=== PATIENT | male | born 1940 | race Caucasian/White ===

== ENCOUNTER 2019-08-01 18:43 | Emergency (ER) | payer MEDICARE ==
--- NOTE | 2019-08-01 19:10 | EDM.PDOC ---
ED HPI GENERAL MEDICAL PROBLEM - General Chief Complaint: Lower Extremity Injury/Pain Stated Complaint: LEFT LEG INJURY/FALL Time Seen by Provider: 08/01/19 18:46 Source of Information: Reports: Patient History Limitations: Reports: No Limitations - History of Present Illness INITIAL COMMENTS - FREE TEXT/NARRATIVE: Booker is a 78 year old male, presents to the ED today with hematoma and pain to left otero after he slipped and fell at [facility] around 1700 this evening. Patient has had nothing for pain, not on blood thinners, did not hit head, denies any neck or back pain or other extremity injury, small abrasion to left anterior otero as well. Onset: Today - Related Data Allergies Allergy/AdvReac Type Severity Reaction Status Date / Time No Known Allergies Allergy Verified 08/01/19 19:02 Home Meds: Home Meds Atenolol 1 tab PO DAILY 08/01/19 [History] Past Medical History Cardiovascular History: Reports: Hypertension - Past Surgical History GI Surgical History: Reports: Cholecystectomy, Hernia, Abdominal Social & Family History - Tobacco Use Smoking Status *Q: Never Smoker Review of Systems - Review of Systems Review Of Systems: ROS reveals no pertinent complaints other than HPI. ED EXAM, GENERAL - Physical Exam Exam: See Below Exam Limited By: No Limitations General Appearance: Alert, WD/WN, No Apparent Distress Eye Exam: Bilateral Eye: EOMI, PERRL Head: Atraumatic Neck: Normal Inspection, Supple Respiratory/Chest: No Respiratory Distress, Lungs Clear Cardiovascular: Regular Rate, Rhythm Peripheral Pulses: 2+: Dorsalis Pedis (L), Dorsalis Pedis (R) Extremities: Other (left lower leg has 2 cm abrasion to mid anterior otero, focal swelling/hematoma, no deformity, strength, cms intact, cap refill intact, distal pulses intact) Neurological: Alert, Oriented, CN II-XII Intact Psychiatric: Normal Affect, Normal Mood Skin Exam: Other (healing biopsy site to left abdomen, no signs of cellulitis, irritation from bandaid adhesive, wound care discussed) Course - Vital Signs Last Recorded V/S: Last Vital Signs Temp 36.0 C 08/01/19 19:12 Pulse 67 08/01/19 19:12 Resp 14 08/01/19 19:12 BP 173/75 H 08/01/19 19:12 Pulse Ox 97 08/01/19 19:12 Booker is a 78 year old male, presents to the ED today with c/o left leg pain/ swelling after falling earlier this evening. Please refer to HPI and focused exam. Patient has hematoma with abrasion on exam, no deformity, x-ray obtained to rule out fracture as is concerned, I think it is unlikely. Patient given a dose of Ibuprofen here, bacitracin applied to abrasion as well as QUINTEN wrap for compression. Xray negative for fracture. Patient reassured. Reasons to return discussed. Patient agreeable and discharged in stable condition. - Orders/Labs/Meds Orders: Active Orders 24 hr Category Date Time Status Tibia Fibula Lt [CR] Stat Exams 08/01/19 19:21 Ordered Meds: Medications Discontinued Medications Generic Name Dose Route Start Last Admin Trade Name Paulette PRN Reason Stop Dose Admin Bacitracin 1 dose 08/01/19 19:21 Bacitracin Oint 1 Gm TOP 08/01/19 19:22 ONETIME ONE Ibuprofen 400 mg 08/01/19 19:21 Motrin Bulk Bottle PO 08/01/19 19:22 ONETIME ONE Departure - Departure Time of Disposition: 20:00 Disposition: Home, Self-Care 01 Condition: Good Clinical Impression: Abrasion Fall Qualifiers: Encounter type: initial encounter Qualified Code(s): W19.XXXA - Unspecified fall, initial encounter Contusion of leg, left Qualifiers: Encounter type: initial encounter Qualified Code(s): S80.12XA - Contusion of left lower leg, initial encounter - Discharge Information Instructions: Contusion Referrals: PCP,None [Primary Care Provider] - Forms: ED Department Discharge Additional Instructions: Keep wound clean and dry Keep QUINTEN wrap on for compression, ice for 20 minutes as needed Tylenol/ibuprofen for pain as needed. Return with any worsening symptoms or new concerns. - My Orders Last 24 Hours: My Active Orders 08/01/19 19:21 Tibia Fibula Lt [CR] Stat - Assessment/Plan Last 24 Hours: My Active Orders 08/01/19 19:21 Tibia Fibula Lt [CR] Stat
[2019-08-01] MEDS ORDERED: Bacitracin Oint 1 GM U/D Packet TOP ONE (19:21)
[2019-08-01] MEDS ORDERED: Ibuprofen 200 MG Tab, 24 Tab Bulk Bottle PO ONE (19:21)
[2019-08-01] MEDS ORDERED: Ibuprofen 400 MG Tab ONE (19:34)
--- NOTE | 2019-08-01 20:20 | CRLCR ---
INDICATION: Status post fall, swelling the mid tibia/fibula. TECHNIQUE: AP and lateral views of the left tibia and fibula. COMPARISON: None FINDINGS AND IMPRESSION: Please note, the malleoli/distal-most aspect of the tibia and fibula are excluded from the field of view on the frontal radiograph. No visualized fracture. Alignment at the knee appears anatomic. No significant soft tissue swelling. No radiopaque foreign body. Mild atherosclerotic calcification. Dictated by Shirlene Pak MD @ 08/01/2019 8:19:17 PM Dictated by: Shirlene Pak MD @ 08/01/2019 20:19:22 (Electronically Signed)
== END 2019-08-01 19:57 | disposition home or self-care (01) ==
LOC: JP.ED 18:43
DX: S80.12XA Contusion of left lower leg, initial encounter (principal); I10 Essential (primary) hypertension; Z79.899 Other long term (current) drug therapy; W01.0XXA Fall on same level from slipping, tripping and stumbling without subsequent striking against object, initial encounter; Y92.830 Public park as the place of occurrence of the external cause
CPT/HCPCS: 73590; 99283; A9270